=== PATIENT | male | born 1945 | race Caucasian/White ===

== ENCOUNTER 2023-09-21 12:41 | Outpatient (RCR) | payer MEDICARE, SELFPAY ==
--- NOTE | ~2023-09-21 | XR_ITS ---
EXAMINATION: XR FOOT, RIGHT CLINICAL INFORMATION: Evaluate for osteomyelitis. COMPARISON: None available. TECHNIQUE: AP, lateral, and oblique views of the right foot. FINDINGS: Decreased bone mineralization No fracture or subluxation. No discrete focal erosive changes or destructive changes to suspect osteomyelitis by radiograph. Moderate multifocal osteoarthritis with joint space narrowing, subcortical sclerosis and bony productive changes. Indeterminate soft tissue calcifications adjacent to the first MTP. Calcaneal spurring. Soft tissue calcifications along the dorsal aspect of the plantar facia. Diffuse soft tissue swelling. Scattered vascular calcifications. XR/XR foot RT min 3V IMPRESSION: 1. No definite radiographic evidence of osteomyelitis. However, early osteomyelitis can be radiographically occult and if there is high clinical suspicion, recommend further evaluation with an MR of the right foot. 2. Moderate multifocal osteoarthritis.
== END 2023-10-26 17:00 | disposition home or self-care (01) ==
LOC: HO.WCC 12:41
PROVIDERS: PCP Internal Medicine; Visit Provider Surgery
DX: L89.626 Pressure-induced deep tissue damage of left heel (principal); S81.812D Laceration without foreign body, left lower leg, subsequent encounter; L30.8 Other specified dermatitis; I10 Essential (primary) hypertension; X58.XXXD Exposure to other specified factors, subsequent encounter; Z79.01 Long term (current) use of anticoagulants; Z79.899 Other long term (current) drug therapy
CPT/HCPCS: 11042; 11043; 73630; 97597; 99212

== ENCOUNTER 2025-04-03 10:22 | Day surgery (SDC) | payer MEDICARE, SELFPAY ==
--- OUTSIDE RECORDS SUMMARY | 2025-02-21 16:54 | XMS_ITS ---
Author Name [facility] Organization Unknown Results Test Name/Text Value Interpretation Date Range Source GLUCOSE 133mg/dL Normal [id number] 70 - 200 [facility] ANION GAP 8mmol/L Normal [id number] 3 - 11 [facility] POTASSIUM 4.6mmol/L Normal [id number] 3.6 - 5.1 [facility] SODIUM 136mmol/L Below low normal [id number] 137 - 144 [facility] CREATININE 1mg/dL Normal [id number] 0.6 - 1.2 [facility] BICARBONATE 21mmol/L Below low normal [id number] 23 - 32 [facility] CALCIUM, TOTAL 8.7mg/dL Normal [id number] 8.4 - 10.2 [facility] CHLORIDE 107mmol/L Normal [id number] 100 - 111 [facility] GLOMERULAR FILTRATION RATE ML/MIN/1.73 SQ M.PREDICTED 77mL/min/1.73m *2 Normal [id number] 60 - [facility] UREA NITROGEN 34mg/dL Above high normal [id number] 8 - 2 4 [facility] MPV 11.8fL Normal [id number] 9.4 - 12.4 [facility] AUTO NRBC % 0% Normal [id number] 0 - 0 [facility] MCV 82.2fL Normal [id number] 80 - 100 [facility] RED CELL COUNT 3.710*6/???L Below low normal [id number] 4. 4 - 5.9 [facility] HEMOGLOBIN 9.5g/dL Below low normal [id number] 13 - 18 [facility] HEMATOCRIT 30.4% Below low normal [id number] 40 - 52 [facility] PLATELET COUNT 59110*3/uL Normal [id number] 150 - 440 [facility] RBC DISTRIBUTION WIDTH 15.6% Above high normal [id number] 11.6 - 14.8 [facility] WHITE CELL COUNT 23.710*3/uL Above high normal [id number] 3.8 - 10.6 [facility] MCHC 31.3g/dL Below low normal [id number] 32 - 36 [facility] MCH 25.7pg Below low normal [id number] 26 - 34 [facility] POTASSIUM 4.2mmol/L Normal [id number] 3.6 - 5.1 [facility] ANION GAP 9mmol/L Normal [id number] 3 - 11 [facility] GLOMERULAR FILTRATION RATE ML/MIN/1.73 SQ M.PREDICTED 77mL/min/1.73m *2 Normal [id number] 60 - [facility] GLUCOSE 204mg/dL Above high normal [id number] 70 - 200 [facility] CALCIUM, TOTAL 8.5mg/dL Normal [id number] 8.4 - 10.2 [facility] CREATININE 1mg/dL Normal [id number] 0.6 - 1.2 [facility] UREA NITROGEN 33mg/dL Above high normal [id number] 8 - 2 4 [facility] SODIUM 136mmol/L Below low normal [id number] 137 - 144 [facility] BICARBONATE 21mmol/L Below low normal [id number] 23 - 32 [facility] CHLORIDE 106mmol/L Normal [id number] 100 - 111 [facility] RBC DISTRIBUTION WIDTH 15.3% Above high normal [id number] 11.6 - 14.8 [facility] PLATELET COUNT 70846*3/uL Normal [id number] 150 - 440 [facility] RED CELL COUNT 4.0310*6/???L Below low normal [id number] 4 .4 - 5.9 [facility] HEMATOCRIT 33.7% Below low normal [id number] 40 - 52 [facility] WHITE CELL COUNT 20.110*3/uL Above high normal [id number] 3.8 - 10.6 [facility] MCV 83.6fL Normal [id number] 80 - 100 [facility] HEMOGLOBIN 10.3g/dL Below low normal [id number] 13 - 18 [facility] MPV 11.6fL Normal [id number] 9.4 - 12.4 [facility] MCHC 30.6g/dL Below low normal [id number] 32 - 36 [facility] MCH 25.6pg Below low normal [id number] 26 - 34 [facility] AUTO NRBC % 0% Normal [id number] 0 - 0 [facility] ABO GROUP (TYPE) IN BLOOD O Normal [id number] [facility] RH TYPE IN BLOOD POS Normal [id number] [facility] ANTIBODY SCREEN NEG Normal [id number] [facility] RH TYPE IN BLOOD POS Normal [id number] [facility] ABO GROUP (TYPE) IN BLOOD O Normal [id number] [facility] NEUTROPHIL % 74.8% Above high normal [id number] 40 - 7 0 [facility] WHITE CELL COUNT 1010*3/uL Normal [id number] 3.8 - 10.6 [facility] AUTO NRBC % 0% Normal [id number] 0 - 0 [facility] MONOCYTE % 9.1% Normal [id number] 4 - 12 [facility] RED CELL COUNT 4.4210*6/???L Normal [id number] 4.4 - 5. 9 [facility] BASOPHILS % 0.8% Normal [id number] 0 - [address] [facility] [address] 0.0810*3/uL Normal [id number] 0 - 0.[address] [facility] [address] 1.2510*3/uL Normal [id number] 0.7 - 4.5 [facility] HEMOGLOBIN 11.1g/dL Below low normal [id number] 13 - 18 [facility] MCHC 30.4g/dL Below low normal [id number] 32 - 36 [facility] MCH 25.1pg Below low normal [id number] 26 - 34 [facility] MCV 82.6fL Normal [id number] 80 - 100 [facility] IMMATURE GRANULOCYTE % 0.2% Normal [id number] 0 - 0.[address] [facility] [address] 0.9110*3/uL Above high normal [id number] 0.2 - 0.[address] [facility] [address] 0.2610*3/uL Normal [id number] 0 - 0.3 [facility] HEMATOCRIT 36.5% Below low normal [id number] 40 - 52 [facility] ABSOLUTE IMMATURE GRANULOCYTES 0.0210*3/uL Normal [id number] [facility] MPV 12fL Normal [id number] 9.4 - 12.[address] [facility] [address] 7.4510*3/uL Above high normal [id number] 1.4 - 6.3 [facility] EOSINOPHIL % 2.6% Normal [id number] 0 - 6 [facility] PLATELET COUNT 41010*3/uL Normal [id number] 150 - 440 [facility] RBC DISTRIBUTION WIDTH 15.5% Above high normal [id number] 11.6 - 14.8 [facility] LYMPHOCYTE % 12.5% Below low normal [id number] 20 - 50 [facility] SODIUM 138mmol/L Normal [id number] 137 - 144 [facility] ANION GAP 9mmol/L Normal [id number] 3 - 11 [facility] CREATININE 0.9mg/dL Normal [id number] 0.6 - 1.2 [facility] GLOMERULAR FILTRATION RATE ML/MIN/1.73 SQ M.PREDICTED 87mL/min/1.73m *2 Normal [id number] 60 - [facility] GLUCOSE 79mg/dL Normal [id number] 70 - 200 [facility] POTASSIUM 4.2mmol/L Normal [id number] 3.6 - 5.1 [facility] BICARBONATE 24mmol/L Normal [id number] 23 - 32 [facility] CALCIUM, TOTAL 9.2mg/dL Normal [id number] 8.4 - 10.2 [facility] CHLORIDE 105mmol/L Normal [id number] 100 - 111 [facility] UREA NITROGEN 26mg/dL Above high normal [id number] 8 - 2 4 [facility] INR 1.6ratio Above high normal [id number] 0.9 - 1.1 [facility] PROTHROMBIN TIME (PT) 18.3seconds Above high normal [id number] 10.4 - 13 [facility] History of Medication Use Medication Directions Dispensed Refills Start Date End Date Stat us oxyCODONE (ROXICODONE) 5 mg immediate release tablet Take 1 tablet (5 mg total) by mouth every 6 (six) hours as needed for moderate pain (4-7) or severe pain (8-10) for up to 15 doses. Max Daily Amount: 20 mg 01/07/2025 active acetaminophen (TylenoL) 325 mg tablet Take 975 mg by mouth every 6 (six) hours as needed for mild pain (1-3), moderate pain (4-7) or severe pain (8-10) for up to 21 days. 11/24/2024 active cyclobenzaprine (FLEXERIL) 5 mg tablet Take 1 tablet (5 mg total) by mouth 3 (three) times a day as needed for muscle spasms for up to 10 days. 11/24/2024 active oxyCODONE (ROXICODONE) 5 mg immediate release tablet Take 1-2 tablets (5-10 mg total) by mouth every 4 (four) hours as needed for moderate pain (4-7) or severe pain (8-10) for up to 5 days. Max Daily Amount: 60 mg 11/24/2024 active sennosides-docusate sodium (Senna with Docusate Sodium) 8.6-50 mg tablet Take 2 tablets by mouth daily as needed for constipation for up to 14 days. 11/24/2024 active Eliquis 5 mg Take 5 mg by mouth in the morning and 5 mg before bedtime. 07/28/2023 active furosemide (LASIX) 20 mg tablet Take 1 tablet by mouth. 07/28/2023 active valsartan (DIOVAN) 160 mg tablet Take 160 mg by mouth in the morning. 07/19/2023 active pantoprazole (PROTONIX) 40 mg EC tablet 10/09/2013 active pantoprazole (PROTONIX) 40 mg EC tablet Take 40 mg by mouth in the morning. 10/09/2013 active simvastatin (ZOCOR) 20 mg tablet Take 20 mg by mouth nightly. 10/09/2013 active gabapentin (NEURONTIN) 100 mg capsule Take 100 mg by mouth in the morning and 100 mg before bedtime. active HYDROcodone-acetaminop hen (NORCO) 7.5-325 mg per tablet Take 1 tablet by mouth every 6 (six) hours as needed for moderate pain (4-7). 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-22 ProblemAct [facility] Chronic indwelling Valverde catheter active 2024-11-22 ProblemAct [facility] Spinal stenosis of lumbar region active 2023-11-26 ProblemAct [facility] Lumbar spondylosis active 2013-02-12 ProblemAct [facility] Post-operative state active EncounterDiagnosisA ct [facility] Thoracogenic scoliosis of thoracolumbar region active EncounterDiagnosisAct [facility] Acute on chronic systolic heart failure active 2023-11-26 ProblemAct [facility] Myelopathy active 2024-11-22 ProblemAct [facility] Encounters Encounter Type Encounter Reason Primary Diagnosis Location Date Ambulatory Other specified postprocedural states Other specified postprocedural states [facility] 01/07/2025 Ambulatory Other specified postprocedural states Other specified postprocedural states [facility] 01/07/2025 Ambulatory Thoracogenic scolios is, thoracolumbar re Thoracogenic scoliosis, thoracolumbar region [facility] 12/06/2024 Ambulatory Thoracogenic scolios is, thoracolumbar re Thoracogenic scoliosis, thoracolumbar region [facility] 12/06/2024 Inpatient Disease of spinal co rd, unspecified Disease of spinal cord, unspecified [facility] 11/22/2024 Ambulatory [facility] 11/22/2024 Ambulatory Spinal stenosis, thoracic region Spinal stenosis, thoracic region [facility] 11/19/2024 Ambulatory Spinal stenosis, thoracic region Spinal stenosis, thoracic region [facility] 11/19/2024 Ambulatory [facility] 08/13/2024 Ambulatory [facility] 08/13/2024 Ambulatory [facility] 08/13/2024 Ambulatory [facility] 08/13/2024 Ambulatory Other secondary kyphosis, thoracolumbar Other secondary kyphosis, thoracolumbar region [facility] 08/13/2024 Ambulatory Radiculopathy, lumba r region Radiculopathy, lumbar region [facility] 07/13/2024 Ambulatory Other secondary kyphosis, thoracolumbar Other secondary kyphosis, thoracolumbar region [facility] 07/13/2024 Ambulatory [facility] 07/13/2024 Ambulatory [facility] 07/13/2024 Ambulatory [facility] 07/13/2024 Care Team Organization Name Specialty Phone Email Start Date End Milo pascual [facility]
[2025-04-01 15:45] VITALS: BMI 26.8
--- NOTE | 2025-04-02 14:50 | HO.ANESPROP2 ---
Documented by User: Marcia Rojas NP 04/02/25 14:51 HPI - Anesthesia Eval Consult details Narrative: 79 yr old male for upper endoscopy, colonoscopy Afib: on eliquis Last PCP note, EKG requested; BMP unremarkable from 02/2025 [facility] Past Medical History Medical History GERD (gastroesophageal reflux disease) Heme positive stool Iron deficiency anemia Seasonal allergies Hx of fall (2022) A-fib Chronic back pain History of GI bleed (1996) HLD (hyperlipidemia) HTN (hypertension) Surgical History Surgical History History of back surgery H/O partial thyroidectomy History of carpal tunnel release Hx of tonsillectomy History of bilateral knee replacement Hx of nasal septoplasty Hx of appendectomy History of cardiac ablation for atrial fibrillation History of esophagogastroduodenoscopy (EGD) Hx of colonoscopy Social History Social History Are you a primary skin care specialist to a significant other at home: No Do you presently have visiting nurse or other home services: No Patient Tobacco Use Status: Never used Tobacco Use of substances other than those prescribed or required for medical reasons: No Have you been hit, kicked, punched, or otherwise hurt by someone within the past year? If so, by whom?: No Are you DNR?: No Advance Directives: No Advance Directives Information Provided: Yes Poor oral hygiene: No Meds Allergies Allergy/AdvReac Type Severity Reaction Status Date / Time celecoxib (From CELEBREX) Allergy Intermediate HIVES Verified 04/03/25 12:09 Home Medications ?Medication ?Instructions ?Recorded ?Confirmed ?Last Taken ?Type apixaban 5 mg tablet (Eliquis) 5 mg PO BID 04/01/25 04/03/25 03/31/25 History ascorbic acid (vitamin C) 500 mg 500 mg PO DAILY 04/01/25 04/01/25 Unknown History tablet (Vitamin C) cyclobenzaprine 10 mg tablet 10 mg PO TID 04/01/25 04/01/25 Unknown History docusate sodium 100 mg capsule 100 mg PO DAILY 04/01/25 04/01/25 Unknown History (Colace) furosemide 20 mg tablet 20 mg PO DAILY 04/01/25 04/01/25 Unknown History gabapentin 100 mg capsule 100 mg PO BID 04/01/25 04/01/25 Unknown History hydrocodone 7.5 mg-acetaminophen 1 tab PO QID PRN Pain 04/01/25 04/01/25 Unknown History 325 mg tablet metoprolol succinate 50 mg 100 mg PO DAILY 04/01/25 04/03/25 04/03/25 History tablet,extended release 24 hr multivitamin 1 tab PO DAILY 04/01/25 04/01/25 Unknown History pantoprazole 40 mg tablet,delayed 40 mg PO DAILY 04/01/25 04/01/25 Unknown History release simvastatin 20 mg tablet 20 mg PO QPM 04/01/25 04/01/25 Unknown History valsartan 160 mg tablet 160 mg PO DAILY 04/01/25 04/01/25 Unknown History Exam Height,Weight and Vital Signs: Height 5 ft 10 in Weight 84.822 kg Documented by User: Pravin Palomino MD 04/04/25 06:58 [facility] Past Medical History Medical History GERD (gastroesophageal reflux disease) Heme positive stool Iron deficiency anemia Seasonal allergies Hx of fall (2022) A-fib Chronic back pain History of GI bleed (1996) HLD (hyperlipidemia) HTN (hypertension) Cognitive capacity: ormal Family History Family history of problems with anesthesia: No Surgical History Surgical History History of back surgery H/O partial thyroidectomy History of carpal tunnel release Hx of tonsillectomy History of bilateral knee replacement Hx of nasal septoplasty Hx of appendectomy History of cardiac ablation for atrial fibrillation History of esophagogastroduodenoscopy (EGD) Hx of colonoscopy History of Problems with Anesthesia: No Social History Social History Are you a primary skin care specialist to a significant other at home: No Do you presently have visiting nurse or other home services: No Patient Tobacco Use Status: Never used Tobacco Use of substances other than those prescribed or required for medical reasons: No Have you been hit, kicked, punched, or otherwise hurt by someone within the past year? If so, by whom?: No Are you DNR?: No Advance Directives: No Advance Directives Information Provided: Yes Poor oral hygiene: No Meds Allergies Allergy/AdvReac Type Severity Reaction Status Date / Time celecoxib (From CELEBREX) Allergy Intermediate HIVES Verified 04/03/25 12:09 Home Medications ?Medication ?Instructions ?Recorded ?Confirmed ?Last Taken ?Type apixaban 5 mg tablet (Eliquis) 5 mg PO BID 04/01/25 04/03/25 03/31/25 History ascorbic acid (vitamin C) 500 mg 500 mg PO DAILY 04/01/25 04/01/25 Unknown History tablet (Vitamin C) cyclobenzaprine 10 mg tablet 10 mg PO TID 04/01/25 04/01/25 Unknown History docusate sodium 100 mg capsule 100 mg PO DAILY 04/01/25 04/01/25 Unknown History (Colace) furosemide 20 mg tablet 20 mg PO DAILY 04/01/25 04/01/25 Unknown History gabapentin 100 mg capsule 100 mg PO BID 04/01/25 04/01/25 Unknown History hydrocodone 7.5 mg-acetaminophen 1 tab PO QID PRN Pain 04/01/25 04/01/25 Unknown History 325 mg tablet metoprolol succinate 50 mg 100 mg PO DAILY 04/01/25 04/03/25 04/03/25 History tablet,extended release 24 hr multivitamin 1 tab PO DAILY 04/01/25 04/01/25 Unknown History pantoprazole 40 mg tablet,delayed 40 mg PO DAILY 04/01/25 04/01/25 Unknown History release simvastatin 20 mg tablet 20 mg PO QPM 04/01/25 04/01/25 Unknown History valsartan 160 mg tablet 160 mg PO DAILY 04/01/25 04/01/25 Unknown History Exam Exam Date and Time: 04/03/2025 Airway Mallampati Class: II TM Dist: >3cm Neck ROM: Full Loose/Missing/Broken Teeth: No Heart: rrr Lungs: cta Other: normal Assessment and Plan Final Anesthetic Review Family History of Problems with Anesthesia: No History of Problems with Anesthesia: No ASA Class: II Final Preanesthetic Review: No Changes in Pt Med Stat, Meds/Allgs Chart Reviewed, Consent Obtained/Reviewed and Anes Risks/Benef Reviewed Patient Risk: Low Procedure Risk: Low Anesthetic Plan Anesthetic Plan: GA Disposition: Standard PACU
[2025-04-03 10:40] VITALS: BMI 28.2
[2025-04-03 10:52] VITALS: BP 146/62; PULSE 79; RESP 18; TEMP 37.2; O2SAT 99
[2025-04-03] MEDS: Lactated Ringers 1,000 ML 100 ML IVCONT (11:25)
--- NOTE | 2025-04-03 11:39 | HO.ANESPROP2 ---
[facility] Past Medical History Medical History GERD (gastroesophageal reflux disease) Heme positive stool Iron deficiency anemia Seasonal allergies Hx of fall (2022) A-fib Chronic back pain History of GI bleed (1996) HLD (hyperlipidemia) HTN (hypertension) Functional capacity: independent ambulation Family History Family history of problems with anesthesia: No Surgical History Surgical History History of back surgery H/O partial thyroidectomy History of carpal tunnel release Hx of tonsillectomy History of bilateral knee replacement Hx of nasal septoplasty Hx of appendectomy History of cardiac ablation for atrial fibrillation History of esophagogastroduodenoscopy (EGD) Hx of colonoscopy History of Problems with Anesthesia: No Social History Social History Are you a primary animal care technician to a significant other at home: No Do you presently have visiting nurse or other home services: No Patient Tobacco Use Status: Never used Tobacco Use of substances other than those prescribed or required for medical reasons: No Have you been hit, kicked, punched, or otherwise hurt by someone within the past year? If so, by whom?: No Are you DNR?: No Advance Directives: No Advance Directives Information Provided: Yes Poor oral hygiene: No Meds Allergies Allergy/AdvReac Type Severity Reaction Status Date / Time celecoxib (From CELEBREX) Allergy Intermediate HIVES Unverified 05/29/20 14:36 Active Medications: Current Medications Lactated Ringer's (Lr) 1,000 mls @ 100 mls/hr IVCONT .Q10H GARRETT Last Admin: 04/03/25 11:25 Dose: 100 mls/hr Sodium Biphosphate/Sodium Phosphate (Sodium Phosphate,Citrus-Dibasic 133 Ml Enema) 133 ml DE ONCE PRN PRN Reason: Poor Colonoscopy Prep Results Home Medications ?Medication ?Instructions ?Recorded ?Confirmed ?Last Taken ?Type apixaban 5 mg tablet (Eliquis) 5 mg PO BID 04/01/25 04/03/25 03/31/25 History ascorbic acid (vitamin C) 500 mg 500 mg PO DAILY 04/01/25 04/01/25 Unknown History tablet (Vitamin C) cyclobenzaprine 10 mg tablet 10 mg PO TID 04/01/25 04/01/25 Unknown History docusate sodium 100 mg capsule 100 mg PO DAILY 04/01/25 04/01/25 Unknown History (Colace) furosemide 20 mg tablet 20 mg PO DAILY 04/01/25 04/01/25 Unknown History gabapentin 100 mg capsule 100 mg PO BID 04/01/25 04/01/25 Unknown History hydrocodone 7.5 mg-acetaminophen 1 tab PO QID PRN Pain 04/01/25 04/01/25 Unknown History 325 mg tablet metoprolol succinate 50 mg 100 mg PO DAILY 04/01/25 04/03/25 04/03/25 History tablet,extended release 24 hr multivitamin 1 tab PO DAILY 04/01/25 04/01/25 Unknown History pantoprazole 40 mg tablet,delayed 40 mg PO DAILY 04/01/25 04/01/25 Unknown History release simvastatin 20 mg tablet 20 mg PO QPM 04/01/25 04/01/25 Unknown History valsartan 160 mg tablet 160 mg PO DAILY 04/01/25 04/01/25 Unknown History Exam Exam Date and Time: 04/03/2025 Height,Weight and Vital Signs: Height 5 ft 10 in Weight 89.018 kg Last Vital Signs Temp 99 F 04/03/25 10:52 Pulse 79 04/03/25 10:52 Resp 18 04/03/25 10:52 BP 146/62 H 04/03/25 10:52 Pulse Ox 99 04/03/25 10:52 O2 Del Method Room Air 04/03/25 10:52 Airway Mallampati Class: II TM Dist: >3cm Loose/Missing/Broken Teeth: No Heart: rrr Lungs: cta Other: normal Assessment and Plan Final Anesthetic Review Family History of Problems with Anesthesia: No History of Problems with Anesthesia: No NPO: Yes ASA Class: II Final Preanesthetic Review: No Changes in Pt Med Stat, Meds/Allgs Chart Reviewed, Consent Obtained/Reviewed and Anes Risks/Benef Reviewed Patient Risk: Low Procedure Risk: Low Anesthetic Plan Anesthetic Plan: MAC: Disposition: Standard PACU
[2025-04-03 13:25] VITALS: BP 86/44; PULSE 66; RESP 18; TEMP 36.4; O2SAT 95
[2025-04-03 13:30] VITALS: BP 124/71; PULSE 70; RESP 18; O2SAT 99
[2025-04-03 13:35] VITALS: BP 117/67; PULSE 69; RESP 16; O2SAT 100
[2025-04-03 13:50] VITALS: BP 130/62; PULSE 73; RESP 18; O2SAT 98
--- NOTE | 2025-04-03 19:56 | PM.OP ---
Brief Operative Note Date of Service: 04/03/25 Pre-op diagnosis: Anemia, Heme + Stool Post-op diagnosis: other (Hiatal hernia, Diverticulosis) Procedure: EGD with biopsies, Colonoscopy to the cecum Surgeon: Tobias Monk MD Was an Freight Loading Supervisor used for this Procedure?: No Estimated blood loss (mL): 2.0 Pathology: other (A. Descending duodenum) Condition: stable Disposition: PACU
--- NOTE | 2025-04-04 02:39 | OP_ITS ---
DATE OF SERVICE: 04/03/2025 SURGEON: Tobias Monk MD INDICATIONS: The patient presents for evaluation of iron-deficiency anemia and heme-positive stool. Full consent has been obtained from him for this, including risks of bleeding and perforation. PREOPERATIVE DIAGNOSIS: POSTOPERATIVE DIAGNOSIS: PROCEDURE PERFORMED: Esophagogastroduodenoscopy with biopsies, and colonoscopy to the cecum. ESTIMATED BLOOD LOSS: COMPLICATIONS: ANESTHESIA: Monitored anesthesia care. ASSISTANTS: SPECIMENS: PREOPERATIVE DIAGNOSES: Iron deficiency anemia and heme-positive stool. POSTOPERATIVE DIAGNOSES: Iron deficiency anemia and heme-positive stool, small hiatal hernia, rule out celiac disease, diverticulosis, and internal hemorrhoids. DESCRIPTION OF PROCEDURE: The patient was placed in the left lateral decubitus position. The Olympus video gastroscope was passed in the posterior oropharynx and upper esophagus under direct vision. The scope was passed slowly to the distal esophagus. The gastroesophageal junction appeared normal at 35 cm. There was no sign of any esophagitis or Olivas's esophagus. The scope entered the stomach. There was a small hiatal hernia. The scope was advanced to the pylorus and the duodenum was cannulated to the descending portion. The duodenum including the bulb appeared normal without mass or ulceration. Biopsies were obtained from the 2nd and 3rd portions of the duodenum to rule out celiac disease. The scope was withdrawn back to the stomach. The gastric antrum and body appeared normal with good peristalsis. The scope was retroflexed visualizing the proximal stomach carefully, which appeared normal, without any sign of mass or ulceration. The scope was straightened and withdrawn back to the esophagus. The esophageal mucosa appeared normal. The scope was withdrawn from the patient. He was turned around for the colonoscopy. The digital rectal exam revealed no abnormalities. The Olympus video pediatric colonoscope was entered into the rectum and advanced to the cecum. Advancement was somewhat difficult due to looping of the scope. However, once in the cecum, I was able to visualize cecal pouch after a lot of irrigation and suctioning. Inspection of the cecum was very good, although again, there were some small portions of stool and debris that did not allow 100% visualization. The appendiceal orifice appeared normal. There was transillumination of light deep in the right lower quadrant. The scope was then slowly withdrawn assessing all mucosal surfaces carefully. Preparation was good throughout the colon, although again, there were some areas of liquid stool that had to be irrigated and suctioned away. I did not visualize any sign of polyps, colitis, nor angiodysplasia. There was a mild to moderate amount of sigmoid diverticulosis. In the rectum, scope was retroflexed visualizing internal hemorrhoids, but no other pathology. The rectal mucosa appeared normal. The scope was straightened and withdrawn from the patient. He tolerated both procedures well and was returned to recovery area in stable condition. IMPRESSION: 1. Small hiatal hernia. 2. Rule out celiac disease. 3. Diverticulosis. 4. Internal hemorrhoids. PLAN: The results of the pathology will be checked. He has been advised to resume his Eliquis, furosemide, and iron tomorrow. Given his age and these findings, I do not think he would need any further screening colonoscopies. In regard to the anemia. I did not visualize any definitive cause of that today. 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 Between that and the Eliquis, that may be contributing to the anemia. He may have some component of anemia of chronic diseases as well. I would recommend that he continue to have followup of his blood counts. Given his age and overall condition, I do not think I would recommend any further evaluation at this time from a GI standpoint, although a small bowel video capsule study could always be done at some point if the anemia becomes more problematic and requires transfusions. He is on his blood thinner and the option of that being stopped at some point would need to be made by his other medical providers if the anemia becomes more problematic. I will plan to see him in the office for a followup and will be sure to have him have followup blood counts as well. This has been discussed with his . MD QUAN Sanchez/DARLENE / [id number] EUNICE
== END 2025-04-03 14:27 | disposition home or self-care (01) ==
PROVIDERS: PCP Internal Medicine; Visit Provider Internal Medicine
PROC: (CPT 45378; principal; 2025-04-03 11:20)
DX: R19.5 Other fecal abnormalities (principal); D50.9 Iron deficiency anemia, unspecified; K57.30 Diverticulosis of large intestine without perforation or abscess without bleeding; K64.8 Other hemorrhoids; K21.9 Gastro-esophageal reflux disease without esophagitis; K44.9 Diaphragmatic hernia without obstruction or gangrene; G89.29 Other chronic pain; M54.9 Dorsalgia, unspecified; I48.91 Unspecified atrial fibrillation; I10 Essential (primary) hypertension; E78.5 Hyperlipidemia, unspecified; Z79.01 Long term (current) use of anticoagulants; Z79.899 Other long term (current) drug therapy; Z98.890 Other specified postprocedural states
CPT/HCPCS: 45378; 43239; 88305; 88313; J2704